=== PATIENT | female | born 1960 | race Caucasian/White ===

== ENCOUNTER 2021-02-17 15:01 | Emergency (ER) | payer BC ==
[~2021-02-17] VITALS: Ht 177.8 cm; Wt 155.9 kg
[2021-02-17 15:10] VITALS: BP 157/68
--- NOTE | 2021-02-17 15:25 | PHYS DOC ---
General Adult EDM: Chief Complaint: MECHANICAL FALL HPI: HPI: 60-year-old female presents via EMS after fall at home. She was walking up a concrete step when her flip-flop got caught and she fell forward. She smacked her forehead against a concrete stair. She was not knocked unconscious. She denies neck pain. She has a large laceration of the forehead. Patient has had no vomiting. She is not currently nauseous. She denies numbness, tingling, or altered sensation. She has no other complaints at this time. Review of Systems: Review of Systems: Constitutional: Denies fever or chills Eyes: Denies change in visual acuity HENT: Denies nasal congestion or sore throat Respiratory: Denies cough or shortness of breath Cardiovascular: Denies chest pain or edema GI: Denies abdominal pain, nausea, vomiting, bloody stools or diarrhea : Denies dysuria Musculoskeletal: Denies back pain or joint pain Integument: Laceration forehead Neurologic: Headache. Denies focal weakness or sensory changes Endocrine: Denies polyuria or polydipsia Lymphatic: Denies swollen glands Psychiatric: Denies depression or anxiety Physical Exam: PE: Constitutional: Well developed, well nourished, morbidly obese, no acute distress, non-toxic appearance. [] HENT: Normocephalic, atraumatic, bilateral external ears normal, oropharynx moist, no oral exudates, nose normal. [] Eyes: PERRLA, EOMI, conjunctiva normal, no discharge. [] Neck: Normal range of motion, no tenderness, supple, no stridor. [] Cardiovascular:Heart rate regular rhythm, no murmur [] Lungs & Thorax: Bilateral breath sounds clear to auscultation [] Abdomen: Bowel sounds normal, soft, no tenderness, no masses, no pulsatile masses. [] Skin: Laceration of the forehead [] Back: No tenderness, no CVA tenderness. [] Extremities: No tenderness, no cyanosis, no clubbing, ROM intact, no edema. [] Neurologic: Alert and oriented X 3, normal motor function, normal sensory function, no focal deficits noted. [] Psychologic: Affect normal, judgement normal, mood normal. [] EKG: EKG: [] Radiology/Procedures: Radiology/Procedures: [] Impressions: INDICATION: Reason: fall / Spl. Instructions: / History: COMPARISON: None. FINDINGS: Single view of chest obtained. Enlarged cardiomediastinal silhouette. Mild haziness at the lung bases without definite consolidation elsewhere in the lungs. No definite displaced fracture is seen. A definite displaced fractures not seen. IMPRESSION: * Enlarged cardiomediastinal silhouette. * Mild haziness at the lung bases which is likely secondary to overlap of soft tissue structures or atelectasis but could obscure a region of infiltrate. Electronically signed by: Bryce Ragland MD (02/17/2021 3:44 PM) [id number] DICTATED AND SIGNED BY: BRYCE RAGLAND MD DATE: 02/17/21 1542 CC: KARUNA YA DO; SUZETTE KELLEY MD ~MTH0 0 Heart Score: C/O Chest Pain: N/A Risk Factors: Risk Factors: DM, Current or recent (<one month) smoker, HTN, HLP, family hist ory of CAD, obesity. Risk Scores: Score 0 - 3: 2.5% MACE over next 6 weeks - Discharge Home Score 4 - 6: 20.3% MACE over next 6 weeks - Admit for Clinical Observation Score 7 - 10: 72.7% MACE over next 6 weeks - Early Invasive Strategies Course & Med Decision Making: Course & Med Decision Making Pertinent Labs and Imaging studies reviewed. (See chart for details) The patient's chest x-ray cannot exclude infiltrate. Given the patient's lack of cough, fever, or other respiratory symptoms I feel this is unlikely. CT of the head and cervical spine is negative for acute findings. I repaired the patient's laceration with sutures. See note below for more details. She is stable for discharge at this time. [] Dragon Disclaimer: [place] Disclaimer: This electronic medical record was generated, in whole or in part, using a voice recognition dictation system. Laceration Repair Lac Repair Indication: [] 10 cm linear laceration of the forehead. Procedure: I obtained verbal consent from the patient for suture repair of her forehead laceration. The wound was anesthetized with 1% lidocaine with epinephrine. A total of 6 cc was used. After good anesthesia was achieved, I thoroughly irrigated the wound with normal saline under pressure. No foreign bodies were found. I then repaired the wound with 4-0 Ethilon suture in an interrupted fashion. There were 10 sutures placed. Skin was well approximated. Bleeding was controlled. No dressing was applied. Total repaired wound length: 10 cm Other Items: None The patient tolerated the procedure well. Complications: None Departure Departure: Impression: Primary Impression: Laceration of forehead Qualified Codes: S01.81XA - Laceration without foreign body of other part of head, initial encounter Additional Impression: Fall on stairs Disposition: 01 HOME / SELF CARE / HOMELESS Condition: IMPROVED Referrals: SUZETTE KELLEY MD (PCP) Patient Instructions: Sutured Wound Care, [id number] KARUNA YA DO Feb 17, 2021 15:25
--- NOTE | 2021-02-17 15:46 | RAD ---
INDICATION: Reason: fall / Spl. Instructions: / History: COMPARISON: None. FINDINGS: Single view of chest obtained. Enlarged cardiomediastinal silhouette. Mild haziness at the lung bases without definite consolidation elsewhere in the lungs. No definite displaced fracture is seen. A definite displaced fractures not seen. IMPRESSION: * Enlarged cardiomediastinal silhouette. * Mild haziness at the lung bases which is likely secondary to overlap of soft tissue structures or atelectasis but could obscure a region of infiltrate. Electronically signed by: Bryce Ragland MD (02/17/2021 3:44 PM) [id number]
--- NOTE | 2021-02-17 15:47 | RAD ---
CT HEAD AND C-SPINE WO dated 02/17/2021 3:25 PM. Comparison: None. Clinical Indication: Reason: fall, head trauma / Spl. Instructions: / History: , HEAD AND NECK PAIN Technical factors: Contiguous 5 mm axial images of the head were obtained from the skullbase to the v ertex. No contrast was administered. In addition, 3 mm axial images of the cervical spine were acquir ed with thin cut coronal and sagittal reconstructions. One or more of the following individualized dose reduction techniques were utilized for this examinat ion: 1. Automated exposure control 2. Adjustment of the mA and/or kV according to patient size 3. Use of iterative reconstruction technique Findings head: Ventricles and sulci are within normal limits for age. No evidence of ventricular shift or mass effec t. Brain parenchyma is of normal attenuation. There is no evidence of hemorrhage or extra-axial colle ction. Visualized paranasal sinuses and mastoid air cells are clear. No acute osseous abnormality. IMPRESSION HEAD: No evidence of acute intracranial abnormality. Findings cervical spine: Images were acquired from the skull base to mid T2. There is straightening of the normal cervical nixon dosis, otherwise sagittal alignment is anatomic. Vertebral body heights are maintained. No prevertebr al soft tissue swelling. Posterior elements are intact. No fractures are identified. Mild to moderate endplate hypertrophic changes throughout with mild to moderate multilevel uncoverteb ral spurring and facet arthropathy. Resultant mild central stenosis at C5-C6 and C6-C7. Mild multilev el foraminal narrowing. Visualized soft tissue structures are unremarkable. Thyroid gland is surgically absent. Limited image s of lung apices are clear. IMPRESSION CERVICAL SPINE: 1. No evidence of fracture or malalignment. 2. Mild multilevel spondylosis. Electronically signed by: Jem Langston MD (02/17/2021 3:45 PM) [id number]
[2021-02-17] MEDS ORDERED: LIDOCAINE 1%/EPI 1:100,000 10 ML VIAL. INJ ONE (16:00)
--- NOTE | 2021-02-17 16:09 | EKG ---
[address] [address] Test Date: 2021-02-17 Test Time: 15:46:53 Pat Name: LUCÍA FISCHER Department: Room: Gender: F [employer]: LOUISE : 1960 Requested By: KARUNA YA Order Number: [id number] Reading MD: Measurements Intervals [place] Rate: 76 P: 48 MI: 144 QRS: -6 QRSD: 92 T: 39 QT: 424 QTc: 482 Interpretive Statements SINUS RHYTHM LEFTWARD AXIS PROLONGED QT NO SPECIFIC ECG ABNORMALITIES RI6.02 No previous ECG available for comparison
[2021-02-17] MEDS ORDERED: DIPH,PERTUSS(ACELL),TET VAC/PF 0.5 ML SYRINGE. VAX IM ONE (17:15)
[2021-02-17 17:21] LABS: BASO % 0 % (0-3); EOS # 0.1 x10^3/uL (0.0-0.7); EOS % 1 % (0-3); HEMATOCRIT 40.9 % (36.0-47.0); HEMOGLOBIN 13.5 g/dL (12.0-15.5); LYMPH # 1.7 x10^3/uL (1.0-4.8); LYMPH % 16 % (24-48); MEAN CORPUSCULAR HEMOGLOBIN 29 pg (25-35); MEAN CORPUSCULAR HGB CONC 33 g/dL (31-37); MEAN CORPUSCULAR VOLUME 87 fL (79-100); MONO # 0.8 x10^3/uL (0.0-1.1); MONO % 8 % (0-9); NEUT % 75 % (31-73); PLATELET COUNT 157 x10^3/uL (140-400); RED BLOOD COUNT 4.69 x10^6/uL (3.50-5.40); RED CELL DISTRIBUTION WIDTH 14.2 % (11.5-14.5); WHITE BLOOD COUNT 10.6 x10^3/uL (4.0-11.0)
[2021-02-17 17:31] LABS: GFR 56.2; POTASSIUM 3.8 mmol/L (3.5-5.1)
[2021-02-17 17:36] LABS: ALBUMIN 3.6 g/dL (3.4-5.0); TOTAL BILIRUBIN 0.4 mg/dL (0.2-1.0); TOTAL PROTEIN 7.2 g/dL (6.4-8.2)
== END 2021-02-17 17:40 | disposition home or self-care (01) ==
LOC: ER 15:01
DX: S01.81XA Laceration without foreign body of other part of head, initial encounter (principal); W10.9XXA Fall (on) (from) unspecified stairs and steps, initial encounter; Y93.89 Activity, other specified; Y92.099 Unspecified place in other non-institutional residence as the place of occurrence of the external cause; Y99.8 Other external cause status
CPT/HCPCS: 12015; 36415; 70450; 71045; 72125; 80053; 84484; 85025; 90471; 90715; 93005; 99285-25